=== PATIENT | male | born 1985 | race Caucasian/White ===

== ENCOUNTER 2024-10-16 21:34 | Emergency (ER) | payer OTHER ==
[~2024-10-16] VITALS: Ht 167.6 cm; Wt 59.1 kg
[2024-10-16 21:37] VITALS: BP 146/98; PULSE 75; RESP 13; TEMP 97.6; O2SAT 98
== END 2024-10-17 01:13 | disposition home or self-care (01) ==
LOC: EMS 21:34
DX: F41.0 Panic disorder [episodic paroxysmal anxiety] (principal); F15.10 Other stimulant abuse, uncomplicated; R10.13 Epigastric pain; R11.0 Nausea; F17.290 Nicotine dependence, other tobacco product, uncomplicated
CPT/HCPCS: 99283; Z7502